=== PATIENT | female | born 1955 | race Caucasian/White ===

== ENCOUNTER 2018-03-02 13:48 | Outpatient (CLI) | payer BC | END 2018-03-02 13:49 | disposition home or self-care (01) | LOC: DTY/OP 13:48 | PROVIDERS: ATTEND Family Medicine | DX: K91.1 Postgastric surgery syndromes (principal) | CPT/HCPCS: 97802 ==

== ENCOUNTER 2019-07-06 12:45 | Outpatient (CLI) | payer BC ==
--- NOTE | 2019-07-25 16:44 | ULT ---
LOWER EXTREMITY ARTERIAL EVALUATION USING DOPPLER WAVEFORM ANALYSIS AND SEGMENTAL LIMB PRESSURES 07/06/19 Examination of the right leg reveals relatively normal waveforms throughout with an ankle-arm index o f 1.15. Left lower extremity reveals similar findings. Toe-brachial index is normal bilaterally. ASSESSMENT: This study would be inconsistent with any ischemic vascular rest pain and unlikely to see any signifi cant vascular claudication with this current set of findings.
== END 2019-07-06 12:46 | disposition home or self-care (01) ==
LOC: ULT 12:45
PROVIDERS: ATTEND Family Medicine
DX: G47.62 Sleep related leg cramps (principal)
CPT/HCPCS: 93922

== ENCOUNTER 2021-02-06 10:57 | Outpatient (CLI) | payer BC | END 2021-02-06 10:58 | disposition home or self-care (01) | LOC: BICRAD 10:57 | PROVIDERS: ATTEND Family Medicine | DX: R07.89 Other chest pain (principal) | CPT/HCPCS: 71046 ==

== ENCOUNTER 2021-07-24 13:08 | Outpatient (CLI) | payer BC | END 2021-07-24 13:09 | disposition home or self-care (01) | LOC: BICMAMMO 13:08 | PROVIDERS: ATTEND Family Medicine | DX: Z12.31 Encounter for screening mammogram for malignant neoplasm of breast (principal) | CPT/HCPCS: 77063; 77067 ==

== ENCOUNTER 2021-10-23 13:02 | Outpatient (CLI) | payer BC | END 2021-10-23 13:03 | disposition home or self-care (01) | LOC: BICRAD 13:02 | PROVIDERS: ATTEND Family Medicine | DX: M25.551 Pain in right hip (principal); M47.27 Other spondylosis with radiculopathy, lumbosacral region | CPT/HCPCS: 72100 ==

== ENCOUNTER 2022-11-30 12:34 | Outpatient (CLI) | payer BC | END 2022-11-30 12:35 | disposition home or self-care (01) | LOC: BICMAMMO 12:34 | PROVIDERS: ATTEND Family Medicine | DX: Z12.31 Encounter for screening mammogram for malignant neoplasm of breast (principal) | CPT/HCPCS: 77063; 77067 ==

== ENCOUNTER 2024-04-26 14:16 | Outpatient (CLI) | payer BC | END 2024-04-26 14:17 | disposition home or self-care (01) | LOC: SCSMRI 14:16 | PROVIDERS: ATTEND Family Medicine Sports Medicine | DX: M25.562 Pain in left knee (principal); S83.232A Complex tear of medial meniscus, current injury, left knee, initial encounter; S83.512A Sprain of anterior cruciate ligament of left knee, initial encounter; S83.242A Other tear of medial meniscus, current injury, left knee, initial encounter; M25.462 Effusion, left knee; M71.22 Synovial cyst of popliteal space [Baker], left knee; M25.762 Osteophyte, left knee | CPT/HCPCS: 36415; 82565 ==